=== PATIENT | male | born 1965 | race Hispanic/Latino ===

== ENCOUNTER 2018-02-08 09:27 | Emergency (ER) | payer SELFPAY ==
--- NOTE | 2018-02-08 10:20 | EDPHYS ---
Physician Documentation [facility] Name: Tank Lima Age: 52 yrs Sex: Male : 1965 Arrival Date: 02/08/2018 Time: 09:30 Bed 15 Private MD: None, None ED Physician Viktor Mckinney HPI: 02/08 10:17 This 52 yrs old Male presents to ER via Ambulatory with complaints of Knee rn Pain. 10:17 The patient presents with pain. The complaints affect the right knee. Onset: The rn symptoms/episode began/occurred 1 month(s) ago. Associated signs and symptoms: Pertinent negatives fever, swelling, weakness. Historical: - Allergies: 09:36 No Known Allergies; aa5 - PMHx: 09:36 Hypertension; aa5 - PSHx: 09:36 None; aa5 - Immunization history:: Adult Immunizations unknown. - Social history:: Smoking status: Patient uses tobacco products, smokes one-half pack cigarettes per day. - Ebola Screening: : No symptoms or risks identified at this time. - Family history:: not pertinent. - Hospitalizations: : No recent hospitalization is reported. ROS: 10:18 Constitutional: Negative for fever, chills, and weight loss, MS/Extremity: Negative for rn injury and deformity, Neuro: Negative for headache, weakness, numbness, tingling, and seizure. Exam: 10:18 Constitutional: This is a well developed, well nourished patient who is awake, alert, rn and in no acute distress. MS/ Extremity: Pulses equal, no cyanosis. Neurovascular intact. Full, normal range of motion. Equal circumference. Vital Signs: 09:37 BP 134 / 79; Pulse 86; Resp 16 S; Temp 98.0(TE); Pulse Ox 95% on R/A; Weight 90.72 kg aa5 (R); Height 5 ft. 9 in. (175.26 cm) (R); 10:34 BP 123 / 65; Pulse 71; Resp 16; Temp 97.9; Pulse Ox 99% on R/A; Pain 0/10; ch 09:37 Body Mass Index 29.53 (90.72 kg, 175.26 cm) aa5 MDM: 09:56 Patient medically screened. rn 10:18 Differential diagnosis: tendonitis, arthritis, chronic knee pain. Data reviewed: vital rn signs, nurses notes, and as a result, I will discharge patient. Counseling: I had a detailed discussion with the patient and/or guardian regarding: the historical points, exam findings, and any diagnostic results supporting the discharge/admit diagnosis, the need for outpatient follow up, to return to the emergency department if symptoms worsen or persist or if there are any questions or concerns that arise at home. Special discussion: I discussed with the patient/guardian in detail that at this point there is no indication for admission to the hospital. It is understood, however, that if the symptoms persist or worsen the patient needs to return immediately for re-evaluation. Based on the history and exam findings, there is no indication for further emergent testing or inpatient evaluation. I discussed with the patient/guardian the need to see the orthopedic surgeon for further evaluation of the symptoms. Administered Medications: No medications were administered Disposition: 02/08/18 10:20 Discharged to Home. Impression: Pain in right knee. - Condition is Stable. - Discharge Instructions: Arthralgia, Knee Bracing, Knee Pain. - Medication Reconciliation Form, Thank You Letter, Antibiotic Education, Prescription Opioid Use form. - Follow up: Private Physician; When: As needed; Reason: Recheck today's complaints, Re-evaluation by your physician. - Problem is an ongoing problem. - Symptoms are unchanged. Signatures: Janis Gutierrez RN RN Viktor Wallace MD MD rn Calderon, Audri, RN RN aa5 Corrections: (The following items were deleted from the chart) 10:45 10:20 02/08/2018 10:20 Discharged to Home. Impression: Pain in right knee. Condition is ch Stable. Forms are Medication Reconciliation Form, Thank You Letter, Antibiotic Education, Prescription Opioid Use. Follow up: Private Physician; When: As needed; Reason: Recheck today's complaints, Re-evaluation by your physician. Problem is an ongoing problem. Symptoms are unchanged. rn
--- NOTE | 2018-02-08 10:20 | ER ---
Nurse's Notes [facility] Name: Tank Lima Age: 52 yrs Sex: Male : 1965 Arrival Date: 02/08/2018 Time: 09:30 Bed 15 Private MD: None, None Diagnosis: Pain in right knee Presentation: 02/08 09:35 Presenting complaint: Patient states: right knee pain x 1 1/2 months. Transition of aa5 care: patient was not received from another setting of care. Onset of symptoms was 2017. Risk Assessment: Do you want to hurt yourself or someone else? Patient reports no desire to harm self or others. Initial Sepsis Screen: Does the patient meet any 2 criteria? No. Patient's initial sepsis screen is negative. Does the patient have a suspected source of infection? No. Patient's initial sepsis screen is negative. Care prior to arrival: None. 09:35 Method Of Arrival: Ambulatory aa5 09:35 Acuity: CHARLES 4 aa5 Historical: - Allergies: 09:36 No Known Allergies; aa5 - PMHx: 09:36 Hypertension; aa5 - PSHx: 09:36 None; aa5 - Immunization history:: Adult Immunizations unknown. - Social history:: Smoking status: Patient uses tobacco products, smokes one-half pack cigarettes per day. - Ebola Screening: : No symptoms or risks identified at this time. - Family history:: not pertinent. - Hospitalizations: : No recent hospitalization is reported. Screenin:34 Abuse screen: Denies threats or abuse. Denies injuries from another. Nutritional ch screening: No deficits noted. Tuberculosis screening: No symptoms or risk factors identified. Fall Risk None identified. Assessment: 10:34 General: Appears in no apparent distress. comfortable, Behavior is calm, cooperative, ch appropriate for age. Pain: Complains of pain in right knee Pain currently is 6 out of 10 on a pain scale. Pain began suddenly. Neuro: Level of Consciousness is awake, alert, obeys commands, Oriented to person, place, time, situation, Concert Singer are equal bilaterally Moves all extremities. Full function. Respiratory: Airway is patent Trachea midline Respiratory effort is even, unlabored, Breath sounds are clear bilaterally. GI: Abdomen is round non-distended, Bowel sounds present X 4 quads. Abd is soft and non tender X 4 quads. Derm: Skin is pink, warm \T\ dry. Musculoskeletal: Circulation, motion, and sensation intact. Capillary refill < 3 seconds, in bilateral fingers. toes. Vital Signs: 09:37 BP 134 / 79; Pulse 86; Resp 16 S; Temp 98.0(TE); Pulse Ox 95% on R/A; Weight 90.72 kg aa5 (R); Height 5 ft. 9 in. (175.26 cm) (R); 10:34 BP 123 / 65; Pulse 71; Resp 16; Temp 97.9; Pulse Ox 99% on R/A; Pain 0/10; ch 09:37 Body Mass Index 29.53 (90.72 kg, 175.26 cm) aa5 ED Course: 09:30 Patient arrived in ED. mr 09:31 None, None is Private Physician. mr 09:36 Triage completed. aa5 09:36 Arm band placed on Patient placed in an exam room, on a stretcher. aa5 09:56 Viktor Mckinney MD is Attending Physician. rn 10:34 Janis Gutierrez RN is Primary Nurse. ch 10:34 No apparent distress. Resting quietly. ch 10:34 Patient has correct armband on for positive identification. Placed in gown. Bed in low ch position. Call light in reach. Side rails up X2. Adult w/ patient. 10:34 No provider procedures requiring assistance completed. Patient did not have IV access ch during this emergency room visit. Administered Medications: No medications were administered Outcome: 10:20 Discharge ordered by . rn 10:34 Discharged to home ambulatory, with family. ch 10:34 Condition: stable 10:34 Discharge instructions given to patient, family, Instructed on discharge instructions, follow up and referral plans. Demonstrated understanding of instructions, follow-up care, medications. 10:45 Patient left the ED. ch Signatures: Janis Gutierrez, RN RN Dajia Bingham mr Viktor Mckinney MD MD rn Calderon, Audri, RN RN aa5
== END 2018-02-08 10:45 | disposition home or self-care (01) ==
LOC: ER 09:27
DX: M25.511 Pain in right shoulder (principal); I10 Essential (primary) hypertension; F17.210 Nicotine dependence, cigarettes, uncomplicated
CPT/HCPCS: 99281

== ENCOUNTER 2018-02-18 11:23 | Emergency (ER) | payer SELFPAY ==
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
[2018-02-18] MEDS ORDERED: IBUPROFEN 400 MG TAB ONE (13:21)
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
== END 2018-02-18 14:05 | disposition home or self-care (01) ==
LOC: ER 11:23
DX: S13.4XXA Sprain of ligaments of cervical spine, initial encounter (principal); S43.491A Other sprain of right shoulder joint, initial encounter; V49.49XA Driver injured in collision with other motor vehicles in traffic accident, initial encounter; I10 Essential (primary) hypertension; F17.210 Nicotine dependence, cigarettes, uncomplicated
CPT/HCPCS: 70450; 72125; 99284